=== PATIENT | male | born 1960 | race African-American/Black ===

== ENCOUNTER → 2016-11-29 | Outpatient (CLI) | payer BC, MEDICARE ==
[2016-08-01 02:05] VITALS: BP 137/85
[~2016-11-29] MED LIST: ALBU6.7H IH; ALPR0.5T PO; APIX5TAB PO; ASCO500S2 PO; ASPI325T4 PO; ASPI81TA9 PO; ATOR40TA59 PO; CARV25TA PO; CLON0.2T PO; CLOP75TA PO; FLUD0.1T PO; FURO80TA3 PO; GABA-586 PO; GUAN1TAB PO; GUAN2TAB11 PO; HYDR-79 PO; INSU100V31; INSULIN DEGLUDEC SQ; ISOS20TA2 PO; LEVE500T56 PO; LISI-334 PO; LURA40TA PO; MELO-150 PO; NIFE30TA7 PO; NITR0.4T SL; OLME1TAB35 PO; OMEG500C PO; ONDA8TAB12 PO; OXYC-244 PO; OXYC-250 PO; OXYC-323 PO; PARO20TA55 PO; RANO500T2 PO; SULF1TAB24 PO; TAMS0.4C2 PO; TORS20TA2 PO; TRAM50TA PO; VALS1TAB22 PO
[2016-11-29 13:13] LABS: ALBUMIN 3.6 g/dL (3.4-5.0); ALBUMIN/GLOBULIN RATIO 0.9 (1.0-1.7); CALCIUM 8.8 mg/dL (8.5-10.1); CREATININE 1.7 mg/dL (0.7-1.3); GFR 50.3; POTASSIUM 3.9 mmol/L (3.5-5.1); TOTAL BILIRUBIN 0.5 mg/dL (0.2-1.0); TOTAL PROTEIN 7.5 g/dL (6.4-8.2)
[2016-11-30 05:09] LABS: HEMOGLOBIN A1C 7.5 % (4.8-5.6)
== END | disposition home or self-care (01) ==
LOC: LAB 12:29
PROVIDERS: ATTEND Nurse Practitioner
DX: E78.5 Hyperlipidemia, unspecified (principal)
CPT/HCPCS: 36415; 80053; 80061; 83036

== ENCOUNTER → 2017-01-01 | Outpatient (CLI) | payer BC, MEDICARE ==
[2016-08-01 02:05] VITALS: BP 137/85
[~2017-01-01] MED LIST changes: -APIX5TAB PO; +APIX5TAB3 PO; +ASPI-612 PO; -ASPI325T4 PO; +ASPI325T8 PO; -ASPI81TA9 PO; +CLON-276 PO; -CLON0.2T PO; -MELO-150 PO; +MELO15TA23 PO; -OXYC-244 PO; -OXYC-250 PO; +OXYC-327 PO; +OXYC-328 PO; -PARO20TA55 PO; +PARO20TA99 PO
== END | disposition home or self-care (01) ==
LOC: LAB 12:33
PROVIDERS: ATTEND Internal Medicine Cardiovascular Disease
DX: I25.119 Atherosclerotic heart disease of native coronary artery with unspecified angina pectoris (principal)
CPT/HCPCS: 36415; 85610

== ENCOUNTER → 2017-01-25 | Outpatient (CLI) | payer BC, MEDICARE ==
[2016-08-01 02:05] VITALS: BP 137/85
--- NOTE | 2017-01-25 15:16 | RAD ---
Chest, 2 views, 01/25/2017: History: Chest pain, shortness of breath Comparison is made to a study from 08/01/2016. A left-sided transvenous pacemaker remains in place with 2 leads extending into the right heart. The heart size and pulmonary vascularity are normal. No pulmonary infiltrates are seen. There is no evidence of pleural fluid. There is a rib deformity on the lower right compatible with an old healed fracture. IMPRESSION: No acute cardiopulmonary abnormality is detected.
== END | disposition home or self-care (01) ==
LOC: DXRAD 14:10
PROVIDERS: ATTEND Internal Medicine Cardiovascular Disease
DX: M95.4 Acquired deformity of chest and rib (principal); R06.02 Shortness of breath; R60.9 Edema, unspecified; Z95.0 Presence of cardiac pacemaker
CPT/HCPCS: 71020

== ENCOUNTER → 2017-04-17 | Outpatient (CLI) | payer BC, MEDICARE ==
[2016-08-01 02:05] VITALS: BP 137/85
[2017-04-17 12:52] LABS: CALCIUM 8.8 mg/dL (8.5-10.1); CREATININE 1.7 mg/dL (0.7-1.3)
[2017-04-17 12:53] LABS: GFR 50.3
== END | disposition home or self-care (01) ==
LOC: LAB 12:07
PROVIDERS: ATTEND Nurse Practitioner
DX: I10 Essential (primary) hypertension (principal)
CPT/HCPCS: 36415; 80048

== ENCOUNTER → 2017-05-14 | Outpatient (CLI) | payer BC, MEDICARE ==
[2016-08-01 02:05] VITALS: BP 137/85
[2017-05-14 14:43] LABS: ALBUMIN 3.2 g/dL (3.4-5.0); CALCIUM 8.4 mg/dL (8.5-10.1); CREATININE 1.8 mg/dL (0.7-1.3); GFR 47.1; MAGNESIUM 2.1 mg/dL (1.8-2.4); PHOSPHORUS 3.7 mg/dL (2.6-4.7); POTASSIUM 3.9 mmol/L (3.5-5.1)
[2017-05-14 14:47] LABS: BASO % 0 % (0-3); EOS % 1 % (0-3); HEMATOCRIT 32.2 % (39.0-53.0); HEMOGLOBIN 11.4 g/dL (13.0-17.5); LYMPH % 40 % (24-48); MEAN CORPUSCULAR HEMOGLOBIN 32 pg (25-35); MEAN CORPUSCULAR HGB CONC 36 g/dL (31-37); MEAN CORPUSCULAR VOLUME 90 fL (79-100); MONO # 0.6 x10^3/uL (0.0-1.1); MONO % 13 % (0-9); NEUT # 2.3 x10^3uL (1.8-7.7); NEUT % 47 % (31-73); PLATELET COUNT 178 x10^3/uL (140-400); RED BLOOD COUNT 3.59 x10^6/uL (4.30-5.70); RED CELL DISTRIBUTION WIDTH 13.9 % (11.5-14.5)
[2017-05-15 09:10] LABS: CALCIUM PTH 8.7 mg/dL (8.7-10.2); CREATININE PTH 1.65 mg/dL (0.76-1.27); PTH INTACT 105 pg/mL (15-65)
[2017-05-16 11:05] LABS: MICRO CREAT RATIO 184.3 mg/g creat (0.0-30.0)
== END | disposition home or self-care (01) ==
LOC: LAB 13:42
PROVIDERS: ATTEND Nurse Practitioner Family
DX: I12.9 Hypertensive chronic kidney disease with stage 1 through stage 4 chronic kidney disease, or unspecified chronic kidney disease (principal); N18.3 Chronic kidney disease, stage 3 (moderate); E10.65 Type 1 diabetes mellitus with hyperglycemia; N17.9 Acute kidney failure, unspecified; R35.1 Nocturia; R80.9 Proteinuria, unspecified; N39.0 Urinary tract infection, site not specified
CPT/HCPCS: 36415; 80069; 82043; 82570; 83735; 83970; 84156; 85025

== ENCOUNTER → 2017-07-12 | Outpatient (CLI) | payer BC, MEDICARE ==
[2016-08-01 02:05] VITALS: BP 137/85
--- NOTE | 2017-07-12 16:05 | RAD ---
CHEST PA LATERAL Clinical Indication: CHECK PACEMAKER WIRES Comparison: Chest radiograph dated 01/25/2017 Findings: Left pectoral transvenous dual-chamber pacemaker with leads in the right atrium and right ventricle. Normal lung volume. No focal consolidation. Stable pulmonary vasculature. No pleural effusion or pneumothorax. The cardiomediastinal silhouette and great vessels are normal. No acute osseous abnormality. Remote right rib fracture. IMPRESSION: 1. No acute cardiopulmonary process. 2. Left pectoral transvenous dual-chamber pacemaker with leads in the right atrium and right ventricle.
== END | disposition home or self-care (01) ==
LOC: DXRAD 14:16
PROVIDERS: ATTEND Nurse Practitioner
DX: S22.31XA Fracture of one rib, right side, initial encounter for closed fracture (principal); T82.120A Displacement of cardiac electrode, initial encounter; Z95.0 Presence of cardiac pacemaker; X58.XXXA Exposure to other specified factors, initial encounter; Y93.89 Activity, other specified; Y92.89 Other specified places as the place of occurrence of the external cause; Y99.8 Other external cause status
CPT/HCPCS: 71020

== ENCOUNTER → 2018-01-24 | Outpatient (CLI) | payer BC, MEDICARE ==
[2016-08-01 02:05] VITALS: BP 137/85
[2018-01-24 17:18] LABS: CALCIUM 8.2 mg/dL (8.5-10.1); CREATININE 2.8 mg/dL (0.7-1.3); GFR 28.2; POTASSIUM 3.5 mmol/L (3.5-5.1)
== END | disposition home or self-care (01) ==
LOC: LAB 15:54
PROVIDERS: ATTEND Nurse Practitioner
DX: R60.0 Localized edema (principal)
CPT/HCPCS: 36415; 80048; 83880

== ENCOUNTER → 2018-01-29 | Outpatient (CLI) | payer BC, MEDICARE ==
[2016-08-01 02:05] VITALS: BP 137/85
[2018-01-29 15:44] LABS: CALCIUM 8.8 mg/dL (8.5-10.1); CREATININE 2.5 mg/dL (0.7-1.3); GFR 32.1; POTASSIUM 3.3 mmol/L (3.5-5.1)
== END | disposition home or self-care (01) ==
LOC: LAB 14:55
PROVIDERS: ATTEND Nurse Practitioner
DX: R60.0 Localized edema (principal)
CPT/HCPCS: 36415; 80048

== ENCOUNTER 2018-05-04 22:18 | Emergency (ER) | payer BC, MEDICARE ==
[~2018-05-04] VITALS: Ht 182.9 cm; Wt 113.4 kg
--- NOTE | 2018-05-04 22:25 | ED.ADGEN ---
Past History Past Medical History: A-Fib, Anemia, Asthma, CAD, Diabetes, Hypertension, Renal Disease, Renal Failure, Other Past Surgical History: Pacemaker Alcohol Use: None Drug Use: None Adult General Chief Complaint Chief Complaint ".. I did not take my water pill until today..but I feel really swollen.. Dr. Aguayo did a cath on me ...".. " I am on a new med.. Brillinta... 90 mg twice a day ...".." I just get anxious... and my legs are all swollen up..." HPI HPI Patient is a 57 year old male who presents with above hx and complaints of cardiac stent at [facility]. Pt. states he feels swollen. Pt. reports seems more short of breath. Pt. has not taken lasix the last couple days. Pt. has hx of DM, CHF, CADz, Afib, Pacer , HTN, Anemia, Anxiety and renal failure. Pt. has no current primary care, but has followed with Dr. Encarnacion in past. Normally follows at [facility]- Dr. Aguayo for his cardiac care. Review of Systems Review of Systems Constitutional: Denies fever or chills [] Eyes: Denies change in visual acuity, redness, or eye pain [] HENT: Denies nasal congestion or sore throat [] Respiratory: Complaints shortness of breath [] Cardiovascular: No additional information not addressed in HPI [] GI: Denies abdominal pain, nausea, vomiting, bloody stools or diarrhea [] : Denies dysuria or hematuria [] Musculoskeletal: Denies back pain or joint pain []Complaints weakness. Integument: Denies rash or skin lesions [] Neurologic: Denies headache, focal weakness or sensory changes [] Endocrine: Denies polyuria or polydipsia [] All other systems were reviewed and found to be within normal limits, except as documented in this note. Family History Family History DM, HTN Current Medications Current Medications Current Medications Medications (Trade) Dose Ordered Sig/Reba Start Time Stop Time Status Last Admin Dose Admin Ceftriaxone Sodium 1 gm/ Sodium Chloride 50 ml @ 100 mls/hr 1X ONCE 05/05/18 01:30 05/05/18 01:59 UNV Ceftriaxone Sodium (Rocephin) 1 gm ONCE ONCE 05/05/18 02:00 05/05/18 02:05 DC 05/05/18 02:17 1 GM Clonidine HCl (Catapres) 0.1 mg 1X ONCE 05/05/18 02:30 05/05/18 02:31 DC 05/05/18 03:00 0.1 MG Furosemide (Lasix) 40 mg 1X ONCE 05/04/18 23:00 05/04/18 23:01 DC 05/04/18 23:49 40 MG Lactated Ringer's 1,000 ml @ 100 mls/hr Q10H 05/04/18 22:30 05/05/18 03:09 DC 05/04/18 23:49 100 MLS/HR Nitroglycerin (Nitro-Bid Oint) 1 inch 1X ONCE 05/05/18 02:30 05/05/18 02:31 DC 05/05/18 03:00 1 INCH Oxycodone/ Acetaminophen (Percocet 5/325) 2 tab 1X ONCE 05/05/18 03:00 05/05/18 03:01 DC 05/05/18 03:00 2 TAB Allergies Allergies Allergies Coded Allergies Type Severity Reaction Last Updated Verified No Known Drug Allergies 03/31/16 No Physical Exam Physical Exam Constitutional: moderately acute distress, non-toxic appearance. [] HENT: Normocephalic, atraumatic, bilateral external ears normal, oropharynx moist, no oral exudates, nose normal. [] Eyes: PERRLA, EOMI, conjunctiva normal, no discharge. [] Neck: Normal range of motion, no tenderness, supple, no stridor. [] Cardiovascular:Heart rate regular rhythm, no murmur []PMI to Lt. Lungs & Thorax: Bilateral breath sounds equal at apex with scattered wheezes and basilar crackles on auscultation []Pacer on Lt. Abdomen: Bowel sounds normal, soft, no tenderness, no masses, no pulsatile masses. [] Skin: Warm, dry, no erythema, no rash. [] Back: No tenderness, no CVA tenderness. [] Extremities: No tenderness, no cyanosis, no clubbing, ROM intact, edema.to mid grimes. Cath site stable. Neurologic: Alert and oriented X 3, normal motor function, normal sensory function, no focal deficits noted. [] Psychologic: Affect anxious, judgement normal, mood normal. [] Current Patient Data Vital Signs Vital Signs Date Time Temp Pulse Resp B/P (MAP) Pulse Ox O2 Delivery O2 Flow Rate FiO2 05/05/18 03:00 77 168/83 05/05/18 00:22 20 100 Room Air 05/04/18 22:50 98.2 Lab Results Laboratory Tests Test 05/04/18 23:45 05/05/18 00:30 White Blood Count 6.5 x10^3/uL (4.0-11.0) Red Blood Count 3.71 x10^6/uL (4.30-5.70) L Hemoglobin 11.3 g/dL (13.0-17.5) L Hematocrit 33.5 % (39.0-53.0) L Mean Corpuscular Volume 90 fL (79-100) Mean Corpuscular Hemoglobin 31 pg (25-35) Mean Corpuscular Hemoglobin Concent 34 g/dL (31-37) Red Cell Distribution Width 14.0 % (11.5-14.5) Platelet Count 226 x10^3/uL (140-400) Neutrophils (%) (Auto) 69 % (31-73) Lymphocytes (%) (Auto) 19 % (24-48) L Monocytes (%) (Auto) 10 % (0-9) H Eosinophils (%) (Auto) 0 % (0-3) Basophils (%) (Auto) 1 % (0-3) Neutrophils # (Auto) 4.5 x10^3uL (1.8-7.7) Lymphocytes # (Auto) 1.2 x10^3/uL (1.0-4.8) Monocytes # (Auto) 0.7 x10^3/uL (0.0-1.1) Eosinophils # (Auto) 0.0 x10^3/uL (0.0-0.7) Basophils # (Auto) 0.1 x10^3/uL (0.0-0.2) Urine Collection Type Unknown Urine Color Yellow Urine Clarity Clear Urine pH 5.5 Urine Specific [place] 1.015 Urine Protein >100 mg/dl (NEG-TRACE) Urine Glucose (UA) 100 mg/dL (NEG) Urine Ketones (Stick) Neg mg/dL (NEG) Urine Blood Small (NEG) Urine Nitrite Neg (NEG) Urine Bilirubin Neg (NEG) Urine Urobilinogen Dipstick 0.2 mg/dL (0.2 mg/dL) Urine Leukocyte Esterase Neg (NEG) Urine RBC 3-5 /HPF (0-2) Urine WBC 5-10 /HPF (0-4) Urine Squamous Epithelial Cells Occ /LPF Urine Bacteria Mod /HPF (0-FEW) Urine Hyaline Casts Few /HPF Urine Mucus Slight /LPF Prothrombin Time 10.8 SEC (9.4-11.4) Prothrombin Time INR 1.1 (0.9-1.1) PTT 30 SEC (23-33) D-Dimer (Dee) 0.39 mg/L (0.00-0.50) Sodium Level 139 mmol/L (136-145) Potassium Level 5.2 mmol/L (3.5-5.1) H Chloride Level 107 mmol/L (98-107) Carbon Dioxide Level 22 mmol/L (21-32) Anion Gap 10 (6-14) Blood Urea Nitrogen 38 mg/dL (8-26) H Creatinine 3.0 mg/dL (0.7-1.3) H Estimated GFR (Cockcroft-Gault) 26.0 Glucose Level 201 mg/dL (70-99) H Calcium Level 9.1 mg/dL (8.5-10.1) Magnesium Level 1.9 mg/dL (1.8-2.4) Total Bilirubin 0.4 mg/dL (0.2-1.0) Direct Bilirubin < 0.1 mg/dL (0.0-0.2) Aspartate Amino Transferase (AST) 67 U/L (15-37) H Alanine Aminotransferase (ALT) 44 U/L (16-63) Alkaline Phosphatase 74 U/L (46-116) Creatine Kinase 907 U/L (39-308) H Creatine Kinase MB (Mass) 17.9 ng/mL (0.0-3.6) H Creatine Kinase MB Relative Index 2.0 % (0-4) Troponin I Quantitative 0.021 ng/mL (0-0.055) WO-Bbd-B-Type Natriuretic Peptide 3608 pg/mL (0-124) H Total Protein 7.8 g/dL (6.4-8.2) Albumin 2.7 g/dL (3.4-5.0) L EKG EKG My interpretation EKG shows a sinus rhythm at 73 bpm. There is some contour abnormalities anterior septal region. Nonspecific T-wave changes. No marked interval change from last EKG on file.[] Radiology/Procedures Radiology/Procedures My interpretation of CXR shows cardiomegaly, some cephalization, and atelectasis. Pacer. No marked interval changes- with exception of increased cephalization- consistent with CHF. Course & Med Decision Making Course & Med Decision Making Pertinent Labs and Imaging studies reviewed. (See chart for details) Still awaiting labs- multiple sticks- multiple draws-hemolyzed. Asked lab to run- the electrolytes any way. 1:20 Hrs. Discussed presentation, testing and tx. plan with Dr. Paniagua- cardiology- oncall for Dr. Aguayo- Advised if pt feeling better could have pt. follow up with Dr. Aguayo - on Sunday. Pt. concerned admit for observation. Discussed options with pt. and about admission and discharge. Pt. insistent on discharge home. also in agreement of preference of discharge. Pt. complains of pain at site of Rocephin injection. Pt. to take Keflex 500 three times a day. for UTI. [] Final Impression Final Impression 1. Edema Complaints[] 2. Fatigue Complaints 3. CHF- BNP 3608 4. Anemia 11.3 5. Elevated K- possible hemolyzed blood draw 6. Elevated BUN / Creat. 38/3.0 7. Malnutrition- 2.7 albumin 8. UTI 9. DM glu-201 10. HTN Dragon Disclaimer Dragon Disclaimer This electronic medical record was generated, in whole or in part, using a voice recognition dictation system. MERYL BESS MD May 04, 2018 22:25
[2018-05-04] MEDS ORDERED: IV RINGERS SOLUTION,LACTATED 1,000 ML IV SCH (22:30)
--- NOTE | 2018-05-04 22:48 | EKG ---
[address] [address] Test Date: 2018-05-04 Test Time: 22:44:43 Pat Name: EMANUEL SPEARS Department: Room: Gender: M Rn Maternal Child: : 1960 Requested By: MERYL BESS Order Number: [id number] Reading MD: Nahun Zarate Measurements Intervals [place] Rate: 73 P: 38 RI: 142 QRS: 35 QRSD: 96 T: 148 QT: 426 QTc: 473 Interpretive Statements SINUS RHYTHM QRS(T) CONTOUR ABNORMALITY CONSIDER ANTEROSEPTAL MYOCARDIAL DAMAGE CONSIDER INFERIOR MYOCARDIAL DAMAGE T ABNORMALITY IN LATERAL LEADS PROLONGED QT ABNORMAL ECG Electronically Signed On 05-07-2018 11:00:05 CDT by Nahun Zarate
[2018-05-04] MEDS ORDERED: FUROSEMIDE 40 MG/4 ML VIAL IVP ONE (23:00)
[2018-05-05 00:05] LABS: BASO # 0.1 x10^3/uL (0.0-0.2); BASO % 1 % (0-3); EOS % 0 % (0-3); HEMATOCRIT 33.5 % (39.0-53.0); HEMOGLOBIN 11.3 g/dL (13.0-17.5); LYMPH # 1.2 x10^3/uL (1.0-4.8); LYMPH % 19 % (24-48); MEAN CORPUSCULAR HEMOGLOBIN 31 pg (25-35); MEAN CORPUSCULAR HGB CONC 34 g/dL (31-37); MEAN CORPUSCULAR VOLUME 90 fL (79-100); MONO # 0.7 x10^3/uL (0.0-1.1); MONO % 10 % (0-9); NEUT # 4.5 x10^3uL (1.8-7.7); NEUT % 69 % (31-73); PLATELET COUNT 226 x10^3/uL (140-400); RED BLOOD COUNT 3.71 x10^6/uL (4.30-5.70); WHITE BLOOD COUNT 6.5 x10^3/uL (4.0-11.0)
[2018-05-05 00:44] LABS: BILIRUBIN,URINE NEG (NEG); CLARITY,URINE CLEAR; COLOR,URINE YELLOW; GLUCOSE,URINE 100 mg/dL (NEG)
[2018-05-05 00:45] LABS: BACTERIA,URINE MOD /HPF (0-FEW); HYALINE CASTS, URINE FEW /HPF; NITRITE,URINE NEG (NEG); SQUAMOUS EPITHELIAL CELL,UR OCC /LPF; UROBILINOGEN,URINE 0.2 mg/dL (0.2 mg/dL)
[2018-05-05 01:44] LABS: ALBUMIN 2.7 g/dL (3.4-5.0); ALK PHOS 74 U/L (46-116); ALT (SGPT) 44 U/L (16-63); ANION GAP 10 (6-14); AST (SGOT) 67 U/L (15-37); BLOOD UREA NITROGEN 38 mg/dL (8-26); CALCIUM 9.1 mg/dL (8.5-10.1); CARBON DIOXIDE 22 mmol/L (21-32); CHLORIDE 107 mmol/L (98-107); GLUCOSE 201 mg/dL (70-99); MAGNESIUM 1.9 mg/dL (1.8-2.4); SODIUM 139 mmol/L (136-145); TOTAL BILIRUBIN 0.4 mg/dL (0.2-1.0); TOTAL PROTEIN 7.8 g/dL (6.4-8.2)
[2018-05-05 01:46] LABS: DIRECT BILIRUBIN < 0.1 mg/dL (0.0-0.2)
[2018-05-05 01:47] LABS: POTASSIUM 5.2 mmol/L (3.5-5.1)
[2018-05-05] MEDS ORDERED: cefTRIAXone IV Push 1 GM VIAL. IVP ONE (02:00)
[2018-05-05] MEDS ORDERED: cloNIDine HCL 0.1 MG TABLET PO ONE (02:30)
[2018-05-05] MEDS ORDERED: NITROGLYCERIN OINT 1 GM PACKET. TP ONE (02:30)
[2018-05-05] MEDS ORDERED: CEPH-264 PO (02:42)
[2018-05-05 03:00] VITALS: BP 168/83
[2018-05-05] MEDS ORDERED: oxyCODONE/APAP 5/325 1 TAB TABLET PO ONE (03:00)
--- NOTE | 2018-05-05 04:15 | RAD ---
PROCEDURE: PORTABLE CHEST 1V CLINICAL INDICATION: Chest pain, cardiac stent placed 05/02/18 COMPARISON: 07/12/2017 FINDINGS: Left chest wall cardiac pacer is seen with leads projecting over the heart. No pneumothorax identified. Cardiac and mediastinal contours unremarkable. No pulmonary consolidation or acute airspace disease. No acute osseous abnormalities identified. IMPRESSION: No pulmonary consolidation or acute airspace disease. Electronically signed by: Claudio Mendenhall DO (05/05/2018 4:12 AM) [facility]
== END 2018-05-05 03:09 | disposition home or self-care (01) ==
LOC: ER 22:18
DX: I11.0 Hypertensive heart disease with heart failure (principal); I50.9 Heart failure, unspecified; R60.9 Edema, unspecified; R53.83 Other fatigue; I48.91 Unspecified atrial fibrillation; J45.909 Unspecified asthma, uncomplicated; N19 Unspecified kidney failure; D64.9 Anemia, unspecified; E46 Unspecified protein-calorie malnutrition; E11.9 Type 2 diabetes mellitus without complications; E78.5 Hyperlipidemia, unspecified; N39.0 Urinary tract infection, site not specified; R94.4 Abnormal results of kidney function studies; R79.89 Other specified abnormal findings of blood chemistry; Z68.33 Body mass index [BMI] 33.0-33.9, adult; Z95.0 Presence of cardiac pacemaker
CPT/HCPCS: 36415; 71045; 80048; 80076; 81001; 82553; 83735; 83880; 84484; 85025; 85379; 85610; 85730; 87086; 93005; 96374; 96375; 99285; J0696; J1940; J7120

== ENCOUNTER 2018-07-15 01:08 | Emergency (ER) | payer MEDICARE, BC ==
[~2018-07-15] VITALS: Ht 182.9 cm; Wt 113.4 kg
[~2018-07-15 01:08] MED LIST changes: +CEPH-264 PO; +HYDR-1179 PO; -HYDR-79 PO; -OXYC-323 PO; -OXYC-327 PO; -OXYC-328 PO; +OXYC1TAB15 PO; +OXYC1TAB19 PO; +OXYC1TAB22 PO
[2018-07-15] MEDS ORDERED: ONDANSETRON PF 4 MG/2 ML VIAL. IV ONE (01:30)
[2018-07-15] MEDS ORDERED: FAMOTIDINE 20 MG/2 ML VIAL IVP ONE (01:30)
--- NOTE | 2018-07-15 01:33 | EKG ---
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: : 1960 Requested By: LIZBETH ORONA Order Number: [id number] Reading MD: Measurements Intervals [place] Rate: 78 P: MT: QRS: 55 QRSD: 98 T: 156 QT: 424 QTc: 487 Interpretive Statements ACCELERATED JUNCTIONAL RHYTHM ST & T ABNORMALITY, CONSIDER HIGH LATERAL ISCHEMIA OR LEFT VENTRICULAR STRAIN INFERIOR ISCHEMIA OR LEFT VENTRICULAR STRAIN T ABNORMALITY IN LATERAL LEADS ABNORMAL ECG RI6.01 Unconfirmed report Compared to ECG 05/04/2018 22:44:43 Accelerated junctional rhythm now present Possible ischemia now present Possible ischemia now present Sinus rhythm no longer present Prolonged QT interval no longer present T-wave abnormality still present
[2018-07-15 01:43] LABS: BASO # 0.1 x10^3/uL (0.0-0.2); BASO % 1 % (0-3); EOS # 0.1 x10^3/uL (0.0-0.7); EOS % 1 % (0-3); HEMATOCRIT 37.3 % (39.0-53.0); HEMOGLOBIN 12.6 g/dL (13.0-17.5); LYMPH # 1.9 x10^3/uL (1.0-4.8); LYMPH % 22 % (24-48); MEAN CORPUSCULAR HEMOGLOBIN 31 pg (25-35); MEAN CORPUSCULAR HGB CONC 34 g/dL (31-37); MEAN CORPUSCULAR VOLUME 91 fL (79-100); MONO # 0.8 x10^3/uL (0.0-1.1); MONO % 10 % (0-9); NEUT # 5.8 x10^3uL (1.8-7.7); NEUT % 67 % (31-73); PLATELET COUNT 282 x10^3/uL (140-400); RED BLOOD COUNT 4.09 x10^6/uL (4.30-5.70); WHITE BLOOD COUNT 8.7 x10^3/uL (4.0-11.0)
[2018-07-15] MEDS ORDERED: IV NORMAL SALINE 500ML 500 ML IV ONE ×2 (02:15)
[2018-07-15 02:18] LABS: ALBUMIN 2.5 g/dL (3.4-5.0); ALBUMIN/GLOBULIN RATIO 0.7 (1.0-1.7); CALCIUM 7.8 mg/dL (8.5-10.1); CREATININE 3.5 mg/dL (0.7-1.3); GFR 21.8; TOTAL BILIRUBIN 0.4 mg/dL (0.2-1.0); TOTAL PROTEIN 6.1 g/dL (6.4-8.2)
--- NOTE | 2018-07-15 02:56 | PHYS DOC ---
Past History Past Medical History: A-Fib, Anemia, Asthma, CAD, Diabetes, Hypertension, Renal Disease, Renal Failure, Other Past Surgical History: Pacemaker, Other Alcohol Use: Rarely Drug Use: Cocaine Adult General Chief Complaint Chief Complaint: NAUSEA/VOMITING/DIARRHEA HPI HPI Patient is a 57 year old male who presents with complaint of nausea and vomiting. Patient states that his symptoms started 2 days ago and have been continuing to worsen during that time. Patient states that he has had associated abdominal pain and back pain with his symptoms. Denies any known fevers or sick contacts. Patient states he's had similar symptoms in the past associated with ileus. Patient has multiple comorbidities including congestive heart failure, coronary artery disease, hypertension, type 2 diabetes mellitus, and chronic kidney disease. The patient states that he has not been able to tolerate any oral intake and has not been able to take his blood pressure medication. Patient admits to recent use of cocaine approximately 4 days ago. Review of Systems Review of Systems Constitutional: Denies fever or chills [] Eyes: Denies change in visual acuity, redness, or eye pain [] HENT: Denies nasal congestion or sore throat [] Respiratory: Denies cough or shortness of breath [] Cardiovascular: Chest pain[] GI: Abdominal pain, nausea, vomiting, constipation[] : Denies dysuria or hematuria [] Musculoskeletal: Back pain[] Integument: Denies rash or skin lesions [] Neurologic: Denies headache, focal weakness or sensory changes [] All other systems were reviewed and found to be within normal limits, except as documented in this note. Current Medications Current Medications Current Medications Medications (Trade) Dose Ordered Sig/Reba Start Time Stop Time Status Last Admin Dose Admin Famotidine (Pepcid Vial) 20 mg 1X ONCE 07/15/18 01:30 07/15/18 02:10 DC 07/15/18 02:00 20 MG Hydralazine HCl (Apresoline) 10 mg 1X ONCE 07/15/18 02:45 07/15/18 02:46 UNV Ondansetron HCl (Zofran) 4 mg 1X ONCE 07/15/18 01:30 07/15/18 02:10 DC 07/15/18 02:00 4 MG Sodium Chloride 500 ml @ 0 mls/hr 1X ONCE 07/15/18 02:15 07/15/18 02:30 DC 07/15/18 02:21 500 MLS/HR Allergies Allergies Allergies Coded Allergies Type Severity Reaction Last Updated Verified No Known Drug Allergies 03/31/16 No Physical Exam Physical Exam Constitutional: Alert, afebrile, actively vomiting, appears in moderate to severe discomfort. [] HENT: Normocephalic, atraumatic, bilateral external ears normal, oropharynx moist, no oral exudates, nose normal. [] Eyes: PERRLA, EOMI, conjunctiva normal, no discharge. [] Neck: Normal range of motion, no tenderness, supple, no stridor. [] Cardiovascular:Heart rate regular rhythm, no murmur [] Lungs & Thorax: Bilateral breath sounds clear to auscultation [] Abdomen: Bowel sounds hypoactive, soft, diffusely tender, no guarding or rebound tenderness, no masses, no pulsatile masses. [] Skin: Warm, dry, no erythema, no rash. [] Back: Bilateral lower thoracic and upper lumbar paraspinous muscle tenderness to palpation, no midline tenderness, no CVA tenderness. [] Extremities: No tenderness, no cyanosis, no clubbing, ROM intact, no edema. [] Neurologic: Alert and oriented X 3, normal motor function, normal sensory function, no focal deficits noted. [] Current Patient Data Vital Signs Vital Signs Date Time Temp Pulse Resp B/P (MAP) Pulse Ox O2 Delivery O2 Flow Rate FiO2 07/15/18 02:18 80 18 255/128 (170) 100 Room Air Lab Results Laboratory Tests Test 07/15/18 01:30 White Blood Count 8.7 x10^3/uL (4.0-11.0) Red Blood Count 4.09 x10^6/uL (4.30-5.70) L Hemoglobin 12.6 g/dL (13.0-17.5) L Hematocrit 37.3 % (39.0-53.0) L Mean Corpuscular Volume 91 fL (79-100) Mean Corpuscular Hemoglobin 31 pg (25-35) Mean Corpuscular Hemoglobin Concent 34 g/dL (31-37) Red Cell Distribution Width 15.0 % (11.5-14.5) H Platelet Count 282 x10^3/uL (140-400) Neutrophils (%) (Auto) 67 % (31-73) Lymphocytes (%) (Auto) 22 % (24-48) L Monocytes (%) (Auto) 10 % (0-9) H Eosinophils (%) (Auto) 1 % (0-3) Basophils (%) (Auto) 1 % (0-3) Neutrophils # (Auto) 5.8 x10^3uL (1.8-7.7) Lymphocytes # (Auto) 1.9 x10^3/uL (1.0-4.8) Monocytes # (Auto) 0.8 x10^3/uL (0.0-1.1) Eosinophils # (Auto) 0.1 x10^3/uL (0.0-0.7) Basophils # (Auto) 0.1 x10^3/uL (0.0-0.2) Sodium Level 145 mmol/L (136-145) Potassium Level 3.0 mmol/L (3.5-5.1) L Chloride Level 109 mmol/L (98-107) H Carbon Dioxide Level 25 mmol/L (21-32) Anion Gap 11 (6-14) Blood Urea Nitrogen 35 mg/dL (8-26) H Creatinine 3.5 mg/dL (0.7-1.3) H Estimated GFR (Cockcroft-Gault) 21.8 BUN/Creatinine Ratio 10 (6-20) Glucose Level 226 mg/dL (70-99) H Calcium Level 7.8 mg/dL (8.5-10.1) L Total Bilirubin 0.4 mg/dL (0.2-1.0) Aspartate Amino Transferase (AST) 46 U/L (15-37) H Alanine Aminotransferase (ALT) 44 U/L (16-63) Alkaline Phosphatase 82 U/L (46-116) Creatine Kinase 911 U/L (39-308) H Creatine Kinase MB (Mass) 14.6 ng/mL (0.0-3.6) H Creatine Kinase MB Relative Index 1.6 % (0-4) Troponin I Quantitative 0.160 ng/mL (0-0.055) H Total Protein 6.1 g/dL (6.4-8.2) L Albumin 2.5 g/dL (3.4-5.0) L Albumin/Globulin Ratio 0.7 (1.0-1.7) L Lipase 114 U/L (73-393) EKG EKG Interpreted by me: Heart rate 78, sinus rhythm, normal intervals, T-wave inversions in the lateral leads present on previous EKG, no acute ST elevations or depressions[] Radiology/Procedures Radiology/Procedures 3 view acute abdominal series interpreted by me: No pulmonary infiltrates or effusions, normal cardiac silhouette, discrete dilation of large bowel in left upper quadrant, no free air under the diaphragm [address] [address] IMAGING REPORT Signed PATIENT: EMANUEL SPEARS ACCOUNT: [id number] : 1960 LOCATION: ER AGE: 57 SEX: M EXAM STATUS: REG ER ORD. PHYSICIAN: LIZBETH ORONA MD REASON: abdominal pain, vomiting PROCEDURE: CT ABDOMEN PELVIS WO CONTRAST INDICATION: abdominal pain - all over but mostly on the right, back pain, nausea and vomiting. hx of diabetes- insulin pump, heart disease - pacemaker, neuropathy, hx of ileus in past COMPARISON: None. TECHNIQUE: Axial CT images obtained through the abdomen and pelvis without contrast. Limited assessment of solid organ structures and vasculature secondary to lack of intravenous contrast.. One or more of the following individualized dose reduction techniques were utilized for this examination: 1. Automated exposure control; 2. Adjustment of the mA and/or kV according to patient size; 3. Use of iterative reconstruction technique. FINDINGS: AICD lead. High density structure in pericardial region. Could be postoperative in nature. Severe calcific atherosclerosis without abdominal aortic aneurysm. Small free fluid. No intrahepatic bile duct dilation. Atrophic appearance of the pancreatic body and tail. Pancreas not well evaluated on noncontrast exam. Spleen unremarkable. Left adrenal thickening with some nodular component. Measures up to about 13 mm in thickness. Suspected cystic lesion left kidney. No left-sided hydronephrosis. Urinary bladder has minimal urine within it but wall does appear thickened. Cystic lesions right kidney are suspected. Other low-density small lesions too small to characterize. Calcifications of prostate. Appendix measures up to about 7 mm. There is some subtle suspected haziness of the fat. Within the pelvis there is some thick-walled loops of small bowel with adjacent haziness to the fat. Edema of soft tissues. Suspected old right rib fracture. Degenerative changes of the spine with multilevel central canal and neural foraminal stenosis. There is some widening of the facet joints at L4-5, could be from facet joint effusions. IMPRESSION: 1. Within the pelvis there are multiple thick-walled loops of small bowel with adjacent mesenteric edema. This can be seen with causes such as enteritis from infectious, inflammatory or ischemic causes. Other causes such as internal hernia not excluded. 2. Wall thickening of the urinary bladder. Would correlate with symptoms in the region since this can be seen with causes such as cystitis, chronic partial bladder outlet obstruction or bladder wall lesion. 3. The appendix is mildly dilated with suspected mild haziness to the adjacent fat through portion of its course. This haziness is subtle/mild finding however given the appendiceal dilatation causes such as an early appendicitis is a possibility on this examination. Electronically signed by: Chandni Vera MD (07/15/2018 3:32 AM) [facility] [place] [facility] DICTATED AND SIGNED BY: CHANDNI VERA MD DATE: 07/15/18 0318 CC: REJI JUAN MD; LIZBETH ORONA MD ~ [] Course & Med Decision Making Course & Med Decision Making Pertinent Labs and Imaging studies reviewed. (See chart for details) IV was obtained and patient was administered Pepcid and Zofran to help improve nausea. Patient also given IV fentanyl for treatment of pain. CT scan shows evidence of possible small bowel obstruction versus ischemic bowel in addition to what was noted as subtle signs of stranding in the right lower quadrant near the appendix, raising possible suspicion for appendicitis. Lab work shows an elevation in the patient's troponin. Blood pressures critically high. Initially treated with hydralazine, however patient's pressure remained critically high necessitating initiation of a nitroglycerin infusion. The patient's condition requires a higher level of care and this patient will require transfer to another facility. [facility] to accept patient for transfer. Critical care time excluding procedures: 45 minutes Dragon Disclaimer Dragon Disclaimer This electronic medical record was generated, in whole or in part, using a voice recognition dictation system. Departure Departure: Impression: Primary Impression: Malignant hypertension Additional Impressions: Myocardial ischemia Abdominal pain Chronic kidney disease, stage IV (severe) Type 2 diabetes mellitus Cocaine abuse Disposition: 02 XFER SHT-TRM HOSP Condition: STABLE Referrals: REJI JUAN MD (PCP) Problem Qualifiers Additional Impressions: Abdominal pain Abdominal location: generalized Qualified Codes: R10.84 - Generalized abdominal pain Type 2 diabetes mellitus Diabetes mellitus [facility] insulin use: unspecified roasterman insulin use status Diabetes mellitus complication status: with hyperglycemia Qualified Codes: E11.65 - Type 2 diabetes mellitus with hyperglycemia LIZBETH ORONA MD Jul 15, 2018 02:56
[2018-07-15] MEDS ORDERED: hydrALAZINE 20 MG/ML VIAL. IV ONE (03:00)
--- NOTE | 2018-07-15 03:36 | RAD ---
INDICATION: abdominal pain - all over but mostly on the right, back pain, nausea and vomiting. hx of diabetes- insulin pump, heart disease - pacemaker, neuropathy, hx of ileus in past COMPARISON: None. TECHNIQUE: Axial CT images obtained through the abdomen and pelvis without contrast. Limited assessment of solid organ structures and vasculature secondary to lack of intravenous contrast.. One or more of the following individualized dose reduction techniques were utilized for this examination: 1. Automated exposure control; 2. Adjustment of the mA and/or kV according to patient size; 3. Use of iterative reconstruction technique. FINDINGS: AICD lead. High density structure in pericardial region. Could be postoperative in nature. Severe calcific atherosclerosis without abdominal aortic aneurysm. Small free fluid. No intrahepatic bile duct dilation. Atrophic appearance of the pancreatic body and tail. Pancreas not well evaluated on noncontrast exam. Spleen unremarkable. Left adrenal thickening with some nodular component. Measures up to about 13 mm in thickness. Suspected cystic lesion left kidney. No left-sided hydronephrosis. Urinary bladder has minimal urine within it but wall does appear thickened. Cystic lesions right kidney are suspected. Other low-density small lesions too small to characterize. Calcifications of prostate. Appendix measures up to about 7 mm. There is some subtle suspected haziness of the fat. Within the pelvis there is some thick-walled loops of small bowel with adjacent haziness to the fat. Edema of soft tissues. Suspected old right rib fracture. Degenerative changes of the spine with multilevel central canal and neural foraminal stenosis. There is some widening of the facet joints at L4-5, could be from facet joint effusions. IMPRESSION: 1. Within the pelvis there are multiple thick-walled loops of small bowel with adjacent mesenteric edema. This can be seen with causes such as enteritis from infectious, inflammatory or ischemic causes. Other causes such as internal hernia not excluded. 2. Wall thickening of the urinary bladder. Would correlate with symptoms in the region since this can be seen with causes such as cystitis, chronic partial bladder outlet obstruction or bladder wall lesion. 3. The appendix is mildly dilated with suspected mild haziness to the adjacent fat through portion of its course. This haziness is subtle/mild finding however given the appendiceal dilatation causes such as an early appendicitis is a possibility on this examination. Electronically signed by: Jeancarlos Huang MD (07/15/2018 3:32 AM) [facility]
[2018-07-15] MEDS ORDERED: NITROGLYCERIN PREMIX 250 ML IV ONE (03:45)
[2018-07-15 04:10] LABS: CLARITY,URINE CLEAR; COLOR,URINE YELLOW; GLUCOSE,URINE 250 mg/dL (NEG)
[2018-07-15 04:11] LABS: BACTERIA,URINE 0 /HPF (0-FEW); BILIRUBIN,URINE NEG (NEG); NITRITE,URINE NEG (NEG); SQUAMOUS EPITHELIAL CELL,UR OCC /LPF; UROBILINOGEN,URINE 0.2 mg/dL (0.2 mg/dL)
[2018-07-15 04:13] LABS: BARBITURATES NEG (NEG); BENZODIAZEPINES NEG (NEG); CANNABINOIDS NEG (NEG); COCAINE POS (NEG); METHADONE NEG (NEG); OPIATES NEG (NEG); PHENCYCLIDINE NEG (NEG)
[2018-07-15 04:15] LABS: AMPHETAMINE/METHAMPHETAMINE NEG (NEG)
[2018-07-15 05:06] VITALS: BP 144/95
--- NOTE | 2018-07-15 08:47 | RAD ---
Single view chest and upright and supine AP views abdomen 07/15/2018 CLINICAL INDICATION: Abdominal pain, nausea and vomiting. COMPARISON: 11/05/2011 abdominal series. FINDINGS: Dual lead left chest wall cardiac conduction device is in similar position. No pleural effusion, pneumothorax or focal consolidation. There are old posterior right fracture deformities. There is a nonobstructive bowel gas pattern. No pneumoperitoneum. Vascular calcifications about the pelvis. IMPRESSION: 1. No acute cardiopulmonary abnormality. 2. No radiographic evidence of bowel obstruction or pneumoperitoneum. Electronically signed by: Magdy Iyer MD (07/15/2018 8:43 AM) [id number]
== END 2018-07-15 05:15 | disposition short-term general hospital (02) ==
LOC: ER 01:08
DX: I25.9 Chronic ischemic heart disease, unspecified (principal); I12.9 Hypertensive chronic kidney disease with stage 1 through stage 4 chronic kidney disease, or unspecified chronic kidney disease; E11.22 Type 2 diabetes mellitus with diabetic chronic kidney disease; N18.4 Chronic kidney disease, stage 4 (severe); F12.10 Cannabis abuse, uncomplicated; I48.91 Unspecified atrial fibrillation; E11.65 Type 2 diabetes mellitus with hyperglycemia; R79.89 Other specified abnormal findings of blood chemistry; J45.909 Unspecified asthma, uncomplicated; I25.10 Atherosclerotic heart disease of native coronary artery without angina pectoris; N32.0 Bladder-neck obstruction; Z86.2 Personal history of diseases of the blood and blood-forming organs and certain disorders involving the immune mechanism; Z95.0 Presence of cardiac pacemaker
CPT/HCPCS: 36415; 74022; 74176; 80053; 80307; 81001; 82553; 83690; 84484; 85025; 93005; 96361; 96365; 96375; 99285; J0360; J2405; J3010; J3490; J7040

== ENCOUNTER → 2018-08-30 | Outpatient (CLI) | payer BC, MEDICARE ==
[~2018-08-30] MED LIST changes: +ALBU2.5V8 IH; -ALBU6.7H IH
[2018-08-30 15:07] LABS: HEMATOCRIT 30.9 % (39.0-53.0); HEMOGLOBIN 10.4 g/dL (13.0-17.5)
[2018-08-30 15:17] LABS: CREATININE 3.7 mg/dL (0.7-1.3); GFR 20.4; MAGNESIUM 1.7 mg/dL (1.8-2.4); PHOSPHORUS 5.1 mg/dL (2.6-4.7); POTASSIUM 3.3 mmol/L (3.5-5.1)
[2018-08-31 09:10] LABS: CALCIUM PTH 8.3 mg/dL (8.7-10.2); CREATININE PTH 3.52 mg/dL (0.76-1.27); PTH INTACT 355 pg/mL (15-65)
== END | disposition home or self-care (01) ==
LOC: LAB 14:11
PROVIDERS: ATTEND Family Medicine
DX: I12.9 Hypertensive chronic kidney disease with stage 1 through stage 4 chronic kidney disease, or unspecified chronic kidney disease (principal); E11.22 Type 2 diabetes mellitus with diabetic chronic kidney disease; N18.3 Chronic kidney disease, stage 3 (moderate); N17.9 Acute kidney failure, unspecified; E83.51 Hypocalcemia; R60.0 Localized edema; R80.1 Persistent proteinuria, unspecified; R35.0 Frequency of micturition
CPT/HCPCS: 36415; 80069; 82306; 83735; 83970; 85014; 85018

== ENCOUNTER → 2018-08-30 | Outpatient (CLI) | payer BC, MEDICARE ==
[2018-08-30 15:13] LABS: CREATININE 3.8 mg/dL (0.7-1.3); GFR 19.8; POTASSIUM 3.3 mmol/L (3.5-5.1)
== END | disposition home or self-care (01) ==
LOC: LAB 14:22
PROVIDERS: ATTEND Nurse Practitioner
DX: I12.9 Hypertensive chronic kidney disease with stage 1 through stage 4 chronic kidney disease, or unspecified chronic kidney disease (principal); E11.22 Type 2 diabetes mellitus with diabetic chronic kidney disease; N18.4 Chronic kidney disease, stage 4 (severe)
CPT/HCPCS: 36415; 80048

== ENCOUNTER 2018-11-19 18:29 | Emergency (ER) | payer BC ==
[~2018-11-19] VITALS: Ht 182.9 cm; Wt 101.6 kg
[2018-11-19] MEDS ORDERED: ONDANSETRON PF 4 MG/2 ML VIAL. ONE (18:54)
[2018-11-19] MEDS ORDERED: IV NORMAL SALINE 1,000ML 1,000 ML IV ONE (19:15)
[2018-11-19] MEDS ORDERED: ONDANSETRON PF 4 MG/2 ML VIAL. IV ONE ×2 (19:30→22:30)
[2018-11-19] MEDS ORDERED: IOHEXOL 240 MG/ML 50ML VIAL. PO ONE (19:30)
[2018-11-19] MEDS ORDERED: hydrALAZINE 20 MG/ML VIAL. IV ONE ×2 (19:30→21:30)
[2018-11-19] MEDS ORDERED: FAMOTIDINE 20 MG/2 ML VIAL IVP ONE (19:30)
[2018-11-19 19:31] LABS: BASO # 0.1 x10^3/uL (0.0-0.2); BASO % 1 % (0-3); EOS % 1 % (0-3); HEMATOCRIT 32.8 % (39.0-53.0); HEMOGLOBIN 11.2 g/dL (13.0-17.5); LYMPH # 1.2 x10^3/uL (1.0-4.8); LYMPH % 20 % (24-48); MEAN CORPUSCULAR HEMOGLOBIN 30 pg (25-35); MEAN CORPUSCULAR HGB CONC 34 g/dL (31-37); MEAN CORPUSCULAR VOLUME 88 fL (79-100); MONO # 0.6 x10^3/uL (0.0-1.1); MONO % 9 % (0-9); NEUT # 4.2 x10^3uL (1.8-7.7); NEUT % 69 % (31-73); PLATELET COUNT 177 x10^3/uL (140-400); RED BLOOD COUNT 3.71 x10^6/uL (4.30-5.70); RED CELL DISTRIBUTION WIDTH 14.8 % (11.5-14.5); WHITE BLOOD COUNT 6.1 x10^3/uL (4.0-11.0)
--- NOTE | 2018-11-19 19:42 | PHYS DOC ---
Past History Past Medical History: A-Fib, Anemia, Asthma, CAD, Diabetes, Hypertension, Renal Disease, Renal Failure, Other Past Surgical History: Pacemaker, Other Alcohol Use: Rarely Drug Use: Cocaine Adult General Chief Complaint Chief Complaint: NAUSEA/VOMITING/DIARRHEA HPI HPI Patient is a 58 year old male who presents to the emergency department for abdominal pain. Patient states the pain started two days ago and is located in his lower abdomen. He describes the pain as sharp and crampy that does not radiate and rates is a 7/10. In addition to his abdominal pain, patient has also vomited 6 times each of the last two days. The vomit was nonbilious nonbloody. Patient also reports his last bowel movement was four days ago. He denies any blood in his vomit, stool, or urine. He denies any chest pain, shortness of breath, lightheadedness, or dizziness. Review of Systems Review of Systems Constitutional: Reports chills, denies fever [] Eyes: Denies redness, or eye pain [] HENT: Denies nasal congestion or sore throat [] Respiratory: Denies cough or shortness of breath [] Cardiovascular: Denies chest pain or palpitations [] GI: Reports abdominal pain, nausea, vomiting, denies bloody stools or diarrhea [ ] : Denies dysuria or hematuria [] Musculoskeletal: Denies back pain or joint pain [] Integument: Denies rash or skin lesions [] Neurologic: Denies headache or focal weakness [] Complete systems were reviewed and found to be within normal limits, except as documented in this note. Current Medications Current Medications Current Medications Medications (Trade) Dose Ordered Sig/[facility] Start Time Stop Time Status Last Admin Dose Admin Famotidine (Pepcid Vial) 20 mg 1X ONCE 11/19/18 19:30 11/19/18 19:31 11/19/18 19:26 20 MG Fentanyl Citrate (Fentanyl 2ml Vial) 50 mcg 1X ONCE 11/19/18 19:30 11/19/18 19:31 11/19/18 19:27 50 MCG Hydralazine HCl (Apresoline) 10 mg 1X ONCE 11/19/18 19:30 11/19/18 19:31 11/19/18 19:27 10 MG Iohexol (Omnipaque 240 Mg/ml) 30 ml 1X ONCE 11/19/18 19:30 11/19/18 19:31 Ondansetron HCl (Zofran) 4 mg 1X ONCE 11/19/18 19:30 11/19/18 19:31 11/19/18 19:26 4 MG Sodium Chloride 1,000 ml @ 1,000 mls/hr 1X ONCE 11/19/18 19:15 11/19/18 20:14 11/19/18 19:26 1,000 MLS/HR Allergies Allergies Allergies Coded Allergies Type Severity Reaction Last Updated Verified No Known Drug Allergies 03/31/16 No Physical Exam Physical Exam Constitutional: Well developed, well nourished, no acute distress, non-toxic appearance. [] HENT: Normocephalic, atraumatic, nose normal. [] Eyes: EOMI, conjunctiva normal, no discharge. [] Neck: Normal range of motion, no tenderness, supple. [] Cardiovascular:Heart rate regular rhythm, no murmur [] Lungs & Thorax: Bilateral breath sounds clear to auscultation [] Abdomen: Soft, no tenderness Skin: Warm, dry, no erythema, no rash. [] Back: No tenderness, no CVA tenderness. [] Extremities: No tenderness, ROM intact, no edema. [] Neurologic: Alert and oriented X 3, normal motor function, no focal deficits noted. [] Psychologic: Affect normal, mood normal. [] Current Patient Data Vital Signs Vital Signs Date Time Temp Pulse Resp B/P (MAP) Pulse Ox O2 Delivery O2 Flow Rate FiO2 11/19/18 19:27 90 220/114 11/19/18 19:27 22 100 Room Air 11/19/18 19:06 97.6 EKG EKG [] Radiology/Procedures Radiology/Procedures PROCEDURE: CT ABD PEL W/ORAL CONTRST ONLY INDICATION: Lower quadrant pain, constipation, vomiting x 2 days. HX: CAD, renal disease, A-fib, diabetic, HTN COMPARISON: July 15, 2018 TECHNIQUE: Axial CT images obtained through the abdomen and pelvis without contrast. Limited assessment of solid organ structures and vasculature secondary to lack of intravenous contrast.. One or more of the following individualized dose reduction techniques were utilized for this examination: 1. Automated exposure control; 2. Adjustment of the mA and/or kV according to patient size; 3. Use of iterative reconstruction technique. FINDINGS: Small pericardial effusion partially seen. There is also some high density within the region which could be from calcifications. Partial visualization of pacemaker leads. Severe calcific atherosclerosis. No intrahepatic bile duct dilation. Poor evaluation of the pancreas without contrast. There is some fullness of the pancreatic head with atrophy of the body and tail. There is some mild haziness to the adjacent fat. Spleen unremarkable. Urinary bladder wall is mildly prominent. No definite radiopaque obstructive left ureter stone. Thickening of the left adrenal gland. Low-density lesions of the right kidney again seen with one of the larger 1's at the lower pole measuring up to 17 mm. No radiopaque obstructive right ureter stone. The suspected appendix is dilated measuring up to about 10 mm. Definitive adjacent inflammation is not seen at this time. The patient also had a dilated appendix on prior exam. No dilated loops of bowel to suggest obstruction. Degenerative changes spine. Old right lower rib fractures with callus formation. IMPRESSION: 1. Repeat demonstration of dilation of the appendix without definite adjacent inflammation at this time. 2. Poor evaluation of pancreas without contrast but there is suspicion for fullness of the pancreatic head and uncinate process with some possible mild haziness of adjacent fat. Would correlate with symptoms in the region to ensure that this is not secondary to causes such as pancreatitis or pancreatic head mass. Would consider obtaining a follow-up CT or MRI pancreatic protocol to further evaluate and ensure that there is no mass in the area. 3. Low-density lesions of the right greater than left kidney. Could be cystic in nature but cannot exclude complex component on this noncontrast exam and nonemergent focused ultrasound could further assess. 4. Urine bladder wall is somewhat prominent. Would correlate with symptoms in the region to ensure that there is not a pathologic process such as cystitis or partial bladder outlet obstruction. 5. Calcific atherosclerosis. 6. There are some degenerative changes the spine as well as some widening of the facet joint at L4-5 which could be from facet joint effusions. Multilevel central canal and neural foraminal stenosis. Electronically signed by: Jeancarlos Huang MD (11/19/2018 9:56 PM) [facility] Course & Med Decision Making Course & Med Decision Making 58 year old male presented to the emergency department for nausea, vomiting, and constipation. He has had multiple episodes of nonbilious nonbloody vomit over the past two days. Labs and imaging were obtained and posted to the chart. Symptomatic treatment provided. CT abd/pelvis without significant findings. Nonspecific pancreatic fat stranding. BUN/Creatinine elevated from prior. Hypertension noted and addressed. Patient reports has been unable to take his home medications. Patient offered admission for further evaluation and treatment. Patient elects to be discharge home. Patient stable for discharge with outpatient follow-up with PCP. Discussed findings and plan with patient and family, who acknowledge understanding and agreement. [] Dragon Disclaimer Dragon Disclaimer This electronic medical record was generated, in whole or in part, using a voice recognition dictation system. Departure Departure: Impression: Primary Impression: Abdominal pain Additional Impressions: Nausea & vomiting Constipation Hypertension Disposition: HOME, SELF-CARE Condition: STABLE Referrals: REJI JUAN MD (PCP) Patient Instructions: Abdominal Pain, [id number], Constipation, Adult, Easy- to-Read, Hypertension, [id number], Nausea and Vomiting, [id number] Scripts Sennosides/Docusate Sodium (Colace 2-in-1 Tablet) 1 Each Tablet 1 EACH PO QHS for Constipation, #20 TAB Prov: JUDY CAT DO 11/19/18 Famotidine (PEPCID) 20 Mg Tablet 1 TAB PO BID for gastritis, #20 TAB Prov: JUDY CAT DO 11/19/18 Ondansetron (ONDANSETRON ODT) 4 Mg Tab.rapdis 1 TAB PO PRN Q6-8HRS PRN for NAUSEA, #16 TAB Prov: JUDY CAT DO 11/19/18 Hydrocodone Bit/Acetaminophen (NORCO 5-325 TABLET) 1 Each Tablet 1 TAB PO Q6HRS PRN for PAIN, #14 TAB Prov: JUDY CAT DO 11/19/18 Problem Qualifiers Primary Impression: Abdominal pain Abdominal location: lower abdomen, unspecified Qualified Codes: R10.30 - Lower abdominal pain, unspecified Additional Impressions: Nausea & vomiting Vomiting type: unspecified Vomiting Intractability: unspecified Qualified Codes: R11.2 - Nausea with vomiting, unspecified Constipation Constipation type: unspecified constipation type Qualified Codes: K59.00 - Constipation, unspecified Hypertension Hypertension type: unspecified Qualified Codes: I10 - Essential (primary) hypertension JUDY CAT DO Nov 19, 2018 19:42
[2018-11-19 19:46] LABS: ALBUMIN 2.9 g/dL (3.4-5.0); ALBUMIN/GLOBULIN RATIO 0.7 (1.0-1.7); CALCIUM 8.6 mg/dL (8.5-10.1); CREATININE 4.8 mg/dL (0.7-1.3); GFR 15.1; POTASSIUM 3.4 mmol/L (3.5-5.1); TOTAL BILIRUBIN 0.4 mg/dL (0.2-1.0); TOTAL PROTEIN 7.3 g/dL (6.4-8.2)
[2018-11-19] MEDS ORDERED: LABETALOL 20 MG/4 ML DISP.SYRIN. IVP ONE (20:30)
[2018-11-19 20:39] LABS: BILIRUBIN,URINE NEG (NEG); CLARITY,URINE CLEAR; COLOR,URINE YELLOW; GLUCOSE,URINE 500 mg/dL (NEG)
[2018-11-19 20:40] LABS: BACTERIA,URINE FEW /HPF (0-FEW); GRANULAR CASTS,URINE OCC /HPF; HYALINE CASTS, URINE OCC /HPF; NITRITE,URINE NEG (NEG); SQUAMOUS EPITHELIAL CELL,UR OCC /LPF; UROBILINOGEN,URINE 0.2 mg/dL (0.2 mg/dL)
--- NOTE | 2018-11-19 21:59 | RAD ---
INDICATION: Lower quadrant pain, constipation, vomiting x 2 days. HX: CAD, renal disease, A-fib, diabetic, HTN COMPARISON: July 15, 2018 TECHNIQUE: Axial CT images obtained through the abdomen and pelvis without contrast. Limited assessment of solid organ structures and vasculature secondary to lack of intravenous contrast.. One or more of the following individualized dose reduction techniques were utilized for this examination: 1. Automated exposure control; 2. Adjustment of the mA and/or kV according to patient size; 3. Use of iterative reconstruction technique. FINDINGS: Small pericardial effusion partially seen. There is also some high density within the region which could be from calcifications. Partial visualization of pacemaker leads. Severe calcific atherosclerosis. No intrahepatic bile duct dilation. Poor evaluation of the pancreas without contrast. There is some fullness of the pancreatic head with atrophy of the body and tail. There is some mild haziness to the adjacent fat. Spleen unremarkable. Urinary bladder wall is mildly prominent. No definite radiopaque obstructive left ureter stone. Thickening of the left adrenal gland. Low-density lesions of the right kidney again seen with one of the larger 1's at the lower pole measuring up to 17 mm. No radiopaque obstructive right ureter stone. The suspected appendix is dilated measuring up to about 10 mm. Definitive adjacent inflammation is not seen at this time. The patient also had a dilated appendix on prior exam. No dilated loops of bowel to suggest obstruction. Degenerative changes spine. Old right lower rib fractures with callus formation. IMPRESSION: 1. Repeat demonstration of dilation of the appendix without definite adjacent inflammation at this time. 2. Poor evaluation of pancreas without contrast but there is suspicion for fullness of the pancreatic head and uncinate process with some possible mild haziness of adjacent fat. Would correlate with symptoms in the region to ensure that this is not secondary to causes such as pancreatitis or pancreatic head mass. Would consider obtaining a follow-up CT or MRI pancreatic protocol to further evaluate and ensure that there is no mass in the area. 3. Low-density lesions of the right greater than left kidney. Could be cystic in nature but cannot exclude complex component on this noncontrast exam and nonemergent focused ultrasound could further assess. 4. Urine bladder wall is somewhat prominent. Would correlate with symptoms in the region to ensure that there is not a pathologic process such as cystitis or partial bladder outlet obstruction. 5. Calcific atherosclerosis. 6. There are some degenerative changes the spine as well as some widening of the facet joint at L4-5 which could be from facet joint effusions. Multilevel central canal and neural foraminal stenosis. Electronically signed by: Jeancarlos Huang MD (11/19/2018 9:56 PM) [facility]
[2018-11-19] MEDS ORDERED: HYDROcodone/APAP 5/325MG 1 TAB TABLET PO ONE (22:30)
[2018-11-19] MEDS ORDERED: cloNIDine HCL 0.1 MG TABLET PO ONE (22:30)
[2018-11-19] MEDS ORDERED: FAMO-63 PO (22:32)
[2018-11-19] MEDS ORDERED: ONDA4TAB12 PO (22:32)
[2018-11-19] MEDS ORDERED: HYDR-3165 PO (22:32)
[2018-11-19] MEDS ORDERED: SENN-121 PO (22:33)
[2018-11-19 22:34] VITALS: BP 198/97
== END 2018-11-19 22:40 | disposition home or self-care (01) ==
LOC: ER 18:29
DX: K59.00 Constipation, unspecified (principal); R11.2 Nausea with vomiting, unspecified; I10 Essential (primary) hypertension; I48.91 Unspecified atrial fibrillation; J45.909 Unspecified asthma, uncomplicated; E11.9 Type 2 diabetes mellitus without complications; Z95.0 Presence of cardiac pacemaker; Z86.2 Personal history of diseases of the blood and blood-forming organs and certain disorders involving the immune mechanism
CPT/HCPCS: 36415; 74176; 80053; 81001; 83690; 85025; J0360; J2405; J3010; J3490; Q9966; 99284-25; J7030

== ENCOUNTER 2018-11-21 17:25 | Inpatient (IN) | payer BC, MEDICARE ==
[~2018-11-21] VITALS: Ht 182.9 cm; Wt 98.0 kg
[~2018-11-21 17:25] MED LIST changes: +FAMO-63 PO; +HYDR-3165 PO; +ONDA4TAB12 PO; +SENN-121 PO
--- NOTE | 2018-11-21 18:02 | PHYS DOC ---
Past History Past Medical History: A-Fib, Anemia, Asthma, CAD, Diabetes, Hypertension, Renal Disease, Renal Failure, Other (GLADYS HERNANDES DO) Past Surgical History: Pacemaker, Other Additional Past Surgical Histo: thyroid surgery (GLADYS HERNANDES DO) Smoking: Cigarettes, Less than 1pk/day Alcohol Use: Rarely Drug Use: Cocaine (GLDAYS HERNANDES DO) Adult General Chief Complaint Chief Complaint: NAUSEA/VOMITING/DIARRHEA HPI HPI Patient is a 58-year-old male who presents with left lower quadrant pain, nausea , vomiting, and diarrhea. This started approximately 5 days ago. He was seen in the ER 2 days ago. Since that time the diarrhea has stopped but he is still unable to tolerate oral intake. Denies any blood in the emesis. No recent travel , no fevers. No relief with the oral dissolving Zofran. Nothing seems to make the discomfort in his left lower quadrant of the abdomen better or worse. He had a CT scan performed at his visit 2 days ago that showed no evidence of diverticulitis, but showed 1. Repeat demonstration of dilation of the appendix without definite adjacent inflammation at this time.2. Poor evaluation of pancreas without contrast but there is suspicion for fullness of the pancreatic head and uncinate process with some possible mild haziness of adjacent fat. Patient has a history of diabetes, has an insulin pump, and reports his blood sugars have been running on the low side.[] (GLADYS HERNANDES DO) Review of Systems Review of Systems Constitutional: Denies fever or chills [] Eyes: Denies change in visual acuity, redness, or eye pain [] HENT: Denies nasal congestion or sore throat [] Respiratory: Denies cough or shortness of breath [] Cardiovascular: No chest pain or palpitations[] GI: See history of present illness[] : Denies dysuria or hematuria [] Musculoskeletal: Denies back pain or joint pain [] Integument: Denies rash or skin lesions [] Neurologic: Denies headache, focal weakness or sensory changes [] Endocrine: Denies polyuria or polydipsia [] All other systems were reviewed and found to be within normal limits, except as documented in this note. (GLADYS HERNANDES DO) Allergies Allergies Allergies Coded Allergies Type Severity Reaction Last Updated Verified No Known Drug Allergies 03/31/16 No (GLADYS HERNANDES DO) Physical Exam Physical Exam Constitutional: Well developed, well nourished, no acute distress, non-toxic appearance. [] HENT: Normocephalic, atraumatic, bilateral external ears normal, oropharynx moist, no oral exudates, nose normal. [] Eyes: PERRLA, EOMI, conjunctiva normal, no discharge. [] Neck: Normal range of motion, no tenderness, supple, no stridor. [] Cardiovascular:Heart rate regular rhythm, no murmur [] Lungs & Thorax: Bilateral breath sounds clear to auscultation [] Abdomen: Bowel sounds normal, soft, no tenderness, no masses, no pulsatile masses. [] Skin: Warm, dry, no erythema, no rash. [] Back: No tenderness, no CVA tenderness. [] Extremities: No tenderness, no cyanosis, no clubbing, ROM intact, no edema. [] Neurologic: Alert and oriented X 3, normal motor function, normal sensory function, no focal deficits noted. [] Psychologic: Affect normal, judgement normal, mood normal. [] (GLADYS HERNANDES DO) Physical Exam Constitutional: Well developed, well nourished, no acute distress, non-toxic appearance. [] HENT: Normocephalic, atraumatic, mucus membranes tachy. [] Abdomen: soft, mild tenderness to left lower quadrant, no peritoneal signs. [] Rectal: small hemorrhoid which is full but nonbleeding, scant hard stool noted in rectum, no impaction appreciated Skin: Warm, dry.[] Neurologic: Alert and oriented X 3, speech normal. [] (JUDY CAT DO) Current Patient Data Vital Signs Vital Signs Date Time Temp Pulse Resp B/P (MAP) Pulse Ox O2 Delivery O2 Flow Rate FiO2 11/21/18 17:40 97.4 72 18 99 Room Air 11/21/18 17:39 179/95 (123) (GLADYS HERNANDES DO) EKG EKG [] (GLADYS HERNANDES DO) EKG @1810 ekg demonstrated normal sinus rhythm, rate of 74 bpm, no ST elevation or signs of infarction (JUDY CAT DO) Radiology/Procedures Radiology/Procedures [] (GLADYS HERNANDES DO) Course & Med Decision Making Course & Med Decision Making Pertinent Labs and Imaging studies reviewed. (See chart for details) [] (GLADYS HERNANDES DO) Course & Med Decision Making 1800 sign out received from Dr. Hernandes for patient with lower abdominal pain and associated nausea and vomiting. Patient recently seen in ED for same and offered admission, but declined. Patient returns due to failed outpatient therapy. Patient reports continued nausea and vomiting and issues with constipation. Non peritoneal. Some hard stool noted in rectal vault and an external hemorrhoid which was full and nonbleeding. Labs obtained and posted to chart. Creat continued to be elevated. IVF hydration given. Pain/nausea addressed. CT held due to imaging done two days ago at previous visit. Patient requiring admission for further evaluation and treatment. Discussed with Dr. Napoles (hospitalist) who is in agreement with admission. Discussed findings and plan with patient and family, who acknowledge understanding and agreement. (JUDY CAT DO) Dragon Disclaimer Dragon Disclaimer This electronic medical record was generated, in whole or in part, using a voice recognition dictation system. (GLADYS HERNANDES DO) Departure Departure: Impression: Primary Impression: Abdominal pain Additional Impressions: Failure of outpatient treatment Acute on chronic renal insufficiency Nausea & vomiting Elevated troponin Hypokalemia Disposition: ADMITTED INPATIENT Admitting Physician: Lamin Napoles (JUDY CAT DO) Condition: STABLE Referrals: SEBASTIAN CRAIG (PCP) Problem Qualifiers Primary Impression: Abdominal pain Abdominal location: left lower quadrant Qualified Codes: R10.32 - Left lower quadrant pain Additional Impressions: Nausea & vomiting Vomiting type: unspecified Vomiting Intractability: intractable Qualified Codes: R11.2 - Nausea with vomiting, unspecified GLADYS HERNANDES DO Nov 21, 2018 18:02 JUDY CAT DO Nov 21, 2018 18:36
[2018-11-21 18:13] LABS: BASO % 1 % (0-3); EOS # 0.1 x10^3/uL (0.0-0.7); EOS % 2 % (0-3); HEMATOCRIT 31.6 % (39.0-53.0); HEMOGLOBIN 10.8 g/dL (13.0-17.5); LYMPH # 1.2 x10^3/uL (1.0-4.8); LYMPH % 19 % (24-48); MEAN CORPUSCULAR HEMOGLOBIN 30 pg (25-35); MEAN CORPUSCULAR HGB CONC 34 g/dL (31-37); MEAN CORPUSCULAR VOLUME 88 fL (79-100); MONO # 0.8 x10^3/uL (0.0-1.1); MONO % 12 % (0-9); NEUT # 4.2 x10^3uL (1.8-7.7); NEUT % 67 % (31-73); PLATELET COUNT 166 x10^3/uL (140-400); RED BLOOD COUNT 3.58 x10^6/uL (4.30-5.70); WHITE BLOOD COUNT 6.4 x10^3/uL (4.0-11.0)
[2018-11-21] MEDS ORDERED: IV NORMAL SALINE 1,000ML 1,000 ML IV SCH (18:15)
--- NOTE | 2018-11-21 18:15 | EKG ---
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
[2018-11-21 18:25] LABS: ALBUMIN/GLOBULIN RATIO 0.7 (1.0-1.7); CALCIUM 8.3 mg/dL (8.5-10.1); CREATININE 4.9 mg/dL (0.7-1.3); GFR 14.7; POTASSIUM 3.3 mmol/L (3.5-5.1); TOTAL BILIRUBIN 0.4 mg/dL (0.2-1.0); TOTAL PROTEIN 7.4 g/dL (6.4-8.2)
[2018-11-21] MEDS ORDERED: FAMOTIDINE 20 MG/2 ML VIAL IVP ONE (18:30)
[2018-11-21] MEDS ORDERED: ONDANSETRON PF 4 MG/2 ML VIAL. IV ONE ×2 (18:30→19:45)
[2018-11-21] MEDS ORDERED: POTASSIUM CHLORIDE 20 MEQ TABLET.ER. PO ONE (18:45)
[2018-11-21 18:56] LABS: BILIRUBIN,URINE NEG (NEG); CLARITY,URINE CLEAR; COLOR,URINE YELLOW; GLUCOSE,URINE 100 mg/dL (NEG)
[2018-11-21 18:57] LABS: BACTERIA,URINE FEW /HPF (0-FEW); NITRITE,URINE NEG (NEG); SQUAMOUS EPITHELIAL CELL,UR MOD /LPF; UROBILINOGEN,URINE 0.2 mg/dL (0.2 mg/dL); WBC,URINE OCC /HPF (0-4)
[2018-11-21] MEDS ORDERED: MAGNESIUM SULFATE 2GM 50 ML IV ONE (19:00)
[2018-11-21] MEDS ORDERED: ONDANSETRON PF 4 MG/2 ML VIAL. IV PRN ×2 (19:00→19:45)
[2018-11-21] MEDS ORDERED: DEXTROSE 50% 25 GM / 50ML DISP.SYRIN. IV PRN (19:00)
[2018-11-21] MEDS ORDERED: IV NORMAL SALINE 1,000ML 1,000 ML IV ONE (19:00)
[2018-11-21] MEDS ORDERED: HYDROCORTISONE ACETATE 25 MG SUPP.RECT PR PRN (19:45)
[2018-11-21 20:08] VITALS: BP 203/98
[2018-11-21 22:34] VITALS: BP 206/101
[2018-11-21] MEDS ORDERED: NITROGLYCERIN SUBLINGUAL 0.4 MG BOTTLE OF 25. SL PRN (23:15)
[2018-11-21] MEDS ORDERED: ALBUTEROL SULFATE 2.5 MG/3 ML NEBU. IH PRN (23:15)
[2018-11-21] MEDS ORDERED: oxyCODONE/APAP 7.5/325 1 TAB TABLET PO PRN (23:15)
[2018-11-21] MEDS ORDERED: RANO500T2 PO (23:34)
[2018-11-21] MEDS ORDERED: ESCITALOPRAM OX10 MG PO (23:37)
[2018-11-21] MEDS ORDERED: TICA90TA PO (23:37)
[2018-11-21] MEDS ORDERED: ALPRAZolam 0.5 MG TABLET PO PRN (23:45)
[2018-11-21] MEDS ORDERED: HYDROcodone/APAP 5/325MG 1 TAB TABLET PO PRN (23:45)
[2018-11-21] MEDS ORDERED: ONDANSETRON ODT 4 MG TAB.RAPDIS PO PRN (23:45)
[2018-11-22] MEDS ORDERED: ANTI-COAG MONITOR BY PHARMACY. MC PRN (00:15)
[2018-11-22] MEDS ORDERED: CARVEDILOL 12.5 MG TABLET ONE (00:46)
[2018-11-22] MEDS ORDERED: cloNIDine HCL 0.2 MG TABLET ONE (00:47)
[2018-11-22 02:39] VITALS: BP 139/82
[2018-11-22 05:37] VITALS: BP 165/91
[2018-11-22] MEDS ORDERED: NON FORMULARY ITEM (Insulin Aspart (Novolog) 0 UNIT) SCH (07:30)
[2018-11-22] MEDS: INSULIN LISPRO 300 UNITS/3 ML INSULN.PEN. SQ SCH ×2 (08:00→12:00)
[2018-11-22] MEDS ORDERED: CARVEDILOL 12.5 MG TABLET PO SCH (08:00)
[2018-11-22 08:10] LABS: HEMATOCRIT 32.3 % (39.0-53.0); HEMOGLOBIN 10.8 g/dL (13.0-17.5); RED BLOOD COUNT 3.63 x10^6/uL (4.30-5.70); RED CELL DISTRIBUTION WIDTH 15.2 % (11.5-14.5); WHITE BLOOD COUNT 5.2 x10^3/uL (4.0-11.0)
[2018-11-22 08:15] LABS: CALCIUM 8.3 mg/dL (8.5-10.1); CREATININE 4.8 mg/dL (0.7-1.3); GFR 15.1; POTASSIUM 3.1 mmol/L (3.5-5.1)
[2018-11-22] MEDS ORDERED: TICAGRELOR 90 MG TABLET. PO SCH (09:00)
[2018-11-22] MEDS ORDERED: APIXABAN 5 MG TABLET. PO SCH (09:00)
[2018-11-22] MEDS ORDERED: OMEGA-3 FATTY ACIDS/FISH OIL 1,000 MG CAPSULE. PO SCH (09:00)
[2018-11-22] MEDS ORDERED: GABAPENTIN 300 MG CAPSULE. PO SCH (09:00)
[2018-11-22] MEDS ORDERED: TAMSULOSIN 0.4 MG CAP.ER.24H. PO SCH (09:00)
[2018-11-22] MEDS ORDERED: CITALOPRAM 20 MG TABLET. PO SCH (09:00)
[2018-11-22] MEDS ORDERED: FAMOTIDINE 20 MG TABLET PO SCH (09:00)
[2018-11-22] MEDS ORDERED: ASCORBIC ACID 500 MG TABLET PO SCH (09:00)
[2018-11-22] MEDS ORDERED: cloNIDine HCL 0.2 MG TABLET PO SCH (09:00)
[2018-11-22] MEDS ORDERED: RANOLAZINE 500 MG TAB.ER.12H PO SCH (09:00)
[2018-11-22 12:11] VITALS: BP 150/79
--- NOTE | 2018-11-22 13:35 | RAD ---
Chest radiograph 11/22/2018 1:40 PM INDICATION: Shortness of breath with acute on chronic systolic CHF COMPARISON: August 03, 2018 TECHNIQUE: Frontal and lateral views of the chest are provided. FINDINGS: The cardiomediastinal silhouette is within normal limits. Similar positioning of left chest wall cardiac device. There are no pleural effusions. There is no pulmonary vascular congestion. There is no pneumothorax. The lungs are clear. Posterior lateral right seventh and eighth rib healed fractures are identified. IMPRESSION: No acute cardiopulmonary process. Electronically signed by: Sandy Freedman MD (11/22/2018 1:31 PM) [id number]
--- NOTE | 2018-11-22 13:49 | HP ---
ADMIT DATE: 11/22/2018 HISTORY OF PRESENT ILLNESS: The patient is a 58-year-old -English male patient, who came to the Emergency Room complaining of recurrent episode of nausea and vomiting as well as diarrhea. He also complained of left lower quadrant pain. All this started approximately 5 days ago. He was seen in the ER 2 days ago. Since that time, the diarrhea has stopped, but he is still unable to tolerate anything orally. Denied any blood in the emesis. There is no recent travel, no fever and the Zofran is not helping his nausea. Nothing seems to make the discomfort in his left lower quadrant of the abdomen better or worse. He had a CT scan performed at his visit 2 days ago, which showed no evidence of diverticulitis, it showed dilatation of his appendix without definite adjacent inflammation at this time and poor evaluation of the pancreas without contrast, but there is suspicion for fullness in the pancreatic head and uncinate process with some possible mild haziness of the adjacent fat. The patient is known to have diabetes and has insulin pump and has reported his blood sugar has been running low as he is unable to keep anything by mouth. He was extensively investigated in the Emergency Room and was found to be hypokalemic, hypomagnesemic. His creatinine also has risen to 4.9. He normally follows with Dr. Gonzalez and apparently his baseline creatinine is 3 according to him, although I do not have any records to confirm that. On questioning him further, he said that he was treated for a urinary tract infection about 4 weeks ago by a visiting physician. He was extensively investigated in the Emergency Room and his white cell count is normal and his urinalysis was basically unremarkable and was admitted to investigate the cause of his recurrent bouts of nausea, vomiting, diarrhea as my differential diagnosis either has acute gastroenteritis, C. diff colitis and/or diabetic gastroparesis. PAST MEDICAL HISTORY: 1. Significant for type 2 diabetes mellitus with multiple complications. 2. Hypertension and hyperlipidemia. He has coronary artery disease, status post PCI with stent deployment, chronic kidney disease, hypothyroidism, benign prostatic hypertrophy. 3. He apparently has had urinary tract infection, treated with amoxicillin about a month ago according to him. PAST SURGICAL HISTORY: Significant for partial thyroidectomy, PCI with stent deployment, permanent pacemaker placement; abdominal wall abscess, status post incision and drainage; bilateral cataract extractions, esophagogastroduodenoscopy, and colonoscopy. ALLERGIES: He has no known drug allergies. MEDICATIONS: He is currently on following medications: He is on albuterol inhaler 1 puff 4 times a day, Flomax 0.4 mg once a day, apixaban 5 mg twice a day, Brilinta 90 mg twice a day, ranolazine 500 mg twice a day, omega-3 fatty acid 500 mg once a day, clonidine 0.2 mg twice a day, nitroglycerin 0.4 mg sublingually every 5 minutes as needed, carvedilol 12.5 mg twice a day; nifedipine 30 mg, she takes 60 mg once a day; hydrocodone/APAP 5/325 one tablet every 6 hours. He is also on Percocet 7.5 mg/325 one tablet 3 times a day as needed, gabapentin 300 mg 3 times a day, escitalopram oxalate 10 mg once a day, alprazolam 0.5 mg every 8 hours as needed, furosemide 80 mg daily and Senna-S two in one tablet at bedtime, ondansetron ODT 4 mg every 6-8 hours, famotidine 20 mg twice a day and NovoLog insulin 8-12 units t.i.d. before meals. He is also on ascorbic acid 500 mg in 5 mL syrup once a day. FAMILY HISTORY: He has 2 sisters and 4 brothers, all of them have diabetes and hypertension. Two of his sisters have myocardial infarction and PCI. Father at age of 87 because of congestive heart failure. Mother in her 80s because of myocardial infarction, cerebrovascular accident, Alzheimer disease. SOCIAL HISTORY: He is , has 2 daughters. He continues to smoke about 5 cigarettes a day, he drinks alcohol occasionally, he does not use any drugs. 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 REVIEW OF SYSTEMS: The patient had bilateral cataract extraction, but denied any glaucoma or macular degeneration. Denied any earache, tinnitus or sensorineural deafness. Denied any nosebleeds, stuffy nose or postnasal drip. Denied any sore throat, sore tongue, toothache, hoarseness of voice or difficulty swallowing. He had multiple episodes of nausea and vomiting as well as diarrhea. In fact, he said he has some blood with stool this morning. He continued to complain of abdominal pain in the left lower quadrant. Denied any chest pain, shortness of breath, orthopnea or paroxysmal nocturnal dyspnea. Denied any cough, phlegm or hemoptysis. Denied any dizziness, lightheadedness, or vertigo. Denied any chills, rigors or fever. PHYSICAL EXAMINATION: GENERAL: On arrival to the Emergency Room, he looked well and was clearly in no apparent respiratory distress, pale, but no jaundice, cyanosis, or thyromegaly. No jugular venous distention. No limb edema. VITAL SIGNS: His heart rate was 72, blood pressure was 179/95, temperature was 97.4, respiratory rate was 18 and oxygen saturation was 99%. HEAD, EYES, EARS, NOSE, and THROAT: Showed normocephalic, atraumatic. NECK: Supple. HEART: Showed normal first and second heart sounds. No gallop, rub or murmur. CHEST: Clear to auscultation. No crepitation or rhonchi. ABDOMEN: Slightly distended, soft with tenderness mostly in the left lower quadrant. There is no guarding or rigidity. No organomegaly. All hernial orifices intact. Bowel sounds normal. NEUROLOGIC: He was awake, alert, and responding appropriately. Cranial nerves are intact. EXTREMITIES: He moves extremities without difficulty. He ambulates with a walker. LABORATORY DATA: His lab work on admission showed that his white cell count was 6400, hemoglobin 11, hematocrit 32, MCV 88 and platelet count 266,000. His chemistry showed a serum sodium of 144, potassium 3.3, chloride 109, bicarbonate 25, anion gap of 10, BUN 40, creatinine 4.9, estimated GFR was 15 mL per minute. His glucose was 101. Calcium was 8.3, magnesium was 1.5. Total bilirubin, AST, ALT, alkaline phosphatase were normal. His troponin was slightly elevated at 0.082. Total protein was 7.4, albumin was 3. His prothrombin time was 10.2, INR 1. Urinalysis showed the urine was yellow, clear with a pH of 6, specific gravity of 1.015. There was large amount of protein, small amount of glucose, negative for ketones, moderate amount of blood, negative for nitrite and leukocyte esterase, there are 3-5 rbc's, occasional wbc's, and no bacteria. He apparently has had a CT scan done on 11/19/2018, which showed that he has a small pericardial effusion, partially seen. There is also some high density within the region, which could be from calcification. Partial visualization of the pacemaker leads. Severe calcific atherosclerosis. No intrahepatic bile duct dilatation and poor evaluation of the pancreas without contrast. There is some fullness of the pancreas head with atrophy with the body and tail. There is some mild haziness with the adjacent fat. His pain was unremarkable. Urinary bladder wall is mildly prominent. No definite radiopaque obstructive left ureteral stone thickening of the left adrenal gland, has low density lesion of the right kidney again seen with one of the larger ones on the lower pole measuring up to 17 mm. No radiopaque obstructive right ureteral stone, suspected appendix is dilated measuring up to about 10 mm, definite adjacent inflammation is not seen at this time. The patient has also had a dilated appendix on prior exam. No dilated loops of small bowel to suggest obstruction, degenerative changes. Old right lower rib fracture with callus formation. PLAN: My plan is to obviously the patient was admitted with recurrent bouts of nausea and vomiting. His lab work showed that he has acute on chronic kidney injury, hypokalemia, hypomagnesemia. We continued most of his medication except his diuretics and as his blood sugar is low, we decided to discontinue his infusion pump and use our insulin sliding scale. NEYMAR TORREZ MD DR: PHILIP/giovani JOB#: [id number] / [id number]
[2018-11-22] MEDS ORDERED: POTASSIUM CL 20MEQ-0.45% NACL 1,000 ML IV SCH (14:15)
[2018-11-22 14:43] VITALS: BP 145/86
--- NOTE | 2018-11-22 16:06 | RAD ---
CT scan abdomen and pelvis without contrast 11/22/2018 CLINICAL HISTORY: Left lower quadrant abdominal pain with nausea vomiting and diarrhea. TECHNIQUE: Unenhanced, contiguous, 3 mm axial sections were obtained through the abdomen and pelvis. One or more of the following individualized dose reduction techniques were utilized for this study: 1. Automated exposure control. 2. Adjustment of the mA and/or kV according to patient size. 3. Use of iterative reconstruction technique. FINDINGS: Comparison study is dated 11/19/2018. Images through the lung bases demonstrate minimal dependent subsegmental atelectasis bilaterally. Coronary artery calcifications are seen. There is borderline cardiomegaly. The liver, spleen, and adrenal glands are within normal limits. Low-attenuation lesions are seen involving both kidneys which may represent cysts. These measure 1 to 2.3 cm in size. Marked atrophy of the body and tail of pancreas is again seen. Fullness of the uncinate process and head of the pancreas is unchanged. Atherosclerotic calcification of the abdominal aorta and its branches is noted. The gallbladder is contracted. No free fluid or free air is seen within the abdomen. There is no evidence of bowel obstruction. Air and stool seen throughout the colon. The appendix is well-visualized and is within normal limits. Images through the pelvis demonstrate the urinary bladder distended with urine. The prostate gland is enlarged likely related to BPH. No free fluid is seen. The osseous structures are unchanged. IMPRESSION: No acute abnormality is seen. Electronically signed by: David Hamilton MD (11/22/2018 4:03 PM) [id number]
--- NOTE | 2018-11-22 18:44 | DS ---
DATE OF DISCHARGE: 11/22/2018 HISTORY OF PRESENT ILLNESS: The patient is a 58-year-old -[place] male patient who was seen in the Emergency Room and admitted with a complaint of recurrent episodes of nausea, vomiting as well as diarrhea with complaint of left lower quadrant pain. All this started approximately 5 days ago. He was seen in the Emergency 2 days ago. Since that time, his diarrhea has stopped, but he is still unable to tolerate anything orally. Denied any blood in the emesis. There is no recent travel, no fever and the Zofran is not helping his nausea. Nothing seems to make his discomfort in his left lower quadrant of abdomen better or worse. CT scan performed 2 days ago showed no evidence of diverticulitis, did show dilatation of his appendix without definite adjacent inflammation at this time and poor evaluation of the pancreas without contrast, but there is suspicion for fullness in the pancreatic head and uncinate process, some possible mild haziness in the adjacent fat. The patient is known to have diabetes and has insulin pump and has reported his blood sugar has been running low and he is unable to keep anything by mouth. He was extensively investigated in the Emergency Room, was found to be hypokalemic, hypomagnesemic. His creatinine also has risen to 4.9. He normally follows with Dr. Gonzalez and apparently his baseline creatinine is 2.5-3 according to him. We did contact Dr. Gonzalez and it was confirmed that his baseline creatinine is 2.5-3. His white cell count was normal. Urinalysis was basically unremarkable and was admitted to investigate the cause of his recurrent bouts of nausea, vomiting, diarrhea with differential diagnosis of acute gastroenteritis, C. diff colitis and/or diabetic gastroparesis. He was found to have acute on chronic kidney injury. In fact, when I saw him this morning, he was also hypothermic with temperature of 94.5, for which we started him on a Peggy Hugger and given that his kidney function has dramatically deteriorated and he continued to have a complaint of recurrent bouts of nausea and vomiting and hypothermia and continued to complain of left lower abdominal pain, I transferred him to [facility] to consult the speed runner, inspector floor and perhaps even Infectious Disease specialist if the patient showed any evidence of sepsis. PHYSICAL EXAMINATION: GENERAL: When I saw him this afternoon, he was resting slightly propped up in bed, in no apparent distress, pale, no jaundice, cyanosis, or thyromegaly. No jugular venous distension. No lower limb edema. VITAL SIGNS: Her heart rate was 70, blood pressure 145/86, temperature was 95.5, respiratory rate 20, and oxygen saturation was 99% on room air. HEAD, EYES, EARS, NOSE AND THROAT: Showed normocephalic, atraumatic. NECK: Supple. HEART: Showed normal first and second sounds. No gallop, rub or murmur. CHEST: Clear to auscultation. No crepitation or rhonchi. ABDOMEN: Distended, soft with tenderness mostly in the left lower quadrant. No guarding or rigidity. No organomegaly. All hernial orifice intact. Bowel sounds normal. NEUROLOGIC: He was sleepy, but arousable. Cranial nerves intact. He moves extremities without difficulty. LABORATORY DATA: His lab work this morning showed a white cell count of 5200, hemoglobin 11, hematocrit 32, MCV 89 and platelet count of 165,000. His chemistry this morning showed a serum sodium 144, potassium 3.1, chloride 110, bicarbonate 24, anion gap of 10, BUN 40, creatinine of 4.8, estimated GFR was 15 mL per minute, his glucose was 45, calcium was 8.3. His prothrombin time was 10.2, INR of 1. The patient was transferred to [facility] with: 1. Acute on chronic kidney injury. His creatinine has risen from 3-4.9. 2. Hypokalemia. 3. Recurrent bouts of nausea, vomiting, diarrhea and left lower quadrant abdominal pain with differential diagnosis of acute gastroenteritis and C. diff colitis and hypothermia with a temperature of 94.5. He has multiple other medical problems including type 2 diabetes mellitus, hypertension, hyperlipidemia, coronary artery disease, status post PCI with stent deployment, hypothyroidism, benign prostatic hypertrophy. He apparently had a urinary tract infection, treated with amoxicillin about a month ago according to him. My plan is to consult the speed runner, Dr. Gonzalez and his associate inspector floor. Continue with the IVs. We gave him a bolus of 500 mL normal saline as he is known to have congestive heart failure, and we will continue with half normal with 20 mEq of potassium chloride at 75 mL per hour. NEYMAR TORREZ MD DR: PHILIP/giovani JOB#: [id number] / [id number]
[2018-11-22] MEDS ORDERED: SENNOSIDES/DOCUSATE 8.6/50MG TABLET. PO SCH (21:00)
== END 2018-11-22 15:50 | disposition short-term general hospital (02) | DRG 684 ==
LOC: ER 17:25 → 1 SOUTH 18:40
PROVIDERS: ADMIT Internal Medicine; ATTEND Internal Medicine
DX: N17.9 Acute kidney failure, unspecified (principal); I48.91 Unspecified atrial fibrillation; I25.10 Atherosclerotic heart disease of native coronary artery without angina pectoris; J45.909 Unspecified asthma, uncomplicated; F17.210 Nicotine dependence, cigarettes, uncomplicated; Z96.41 Presence of insulin pump (external) (internal); N18.9 Chronic kidney disease, unspecified; I12.9 Hypertensive chronic kidney disease with stage 1 through stage 4 chronic kidney disease, or unspecified chronic kidney disease; E11.22 Type 2 diabetes mellitus with diabetic chronic kidney disease; E87.6 Hypokalemia; E78.5 Hyperlipidemia, unspecified; E83.42 Hypomagnesemia; E03.9 Hypothyroidism, unspecified; N40.0 Benign prostatic hyperplasia without lower urinary tract symptoms; Z82.0 Family history of epilepsy and other diseases of the nervous system; Z79.4 Long term (current) use of insulin; Z82.3 Family history of stroke; Z82.49 Family history of ischemic heart disease and other diseases of the circulatory system; Z95.5 Presence of coronary angioplasty implant and graft; Z95.0 Presence of cardiac pacemaker; Z83.3 Family history of diabetes mellitus; Z98.41 Cataract extraction status, right eye; Z98.42 Cataract extraction status, left eye
CPT/HCPCS: 36415; 71046; 74176; 80048; 80053; 81001; 82947; 83690; 83735; 84484; 85025; 85027; 85610; 93005; 96361; 96374; 96375; J0360; J2405; J3010; J3490; Q9966; 99285-25; J7030